=== PATIENT | female | born 1965 | race Caucasian/White ===

== ENCOUNTER 2018-09-07 19:57 | Emergency (ER) | payer OTHER ==
[~2018-09-07] VITALS: Ht 157.5 cm; Wt 76.2 kg
[2018-09-07 20:00] VITALS: BP 156/86
--- NOTE | 2018-09-07 20:00 | NUR ---
ASSUMED CARE OF PT AT THIS TIME. C/O SUB-STERNAL, NON-RADIATING CP X 2 DAYS. NO SOB. AAOX4 WITH EVEN AND STEADY GAIT; PATIENT STATES PAIN OF 6/10; VSS; PATIENT POSITIONED FOR COMFORT; HOB ELEVATED; BEDRAILS UP X2; BED DOWN. ER MD MADE AWARE OF PT STATUS. WILL CONTINUE TO MONITOR.
--- NOTE | 2018-09-07 20:00 | NUR ---
TO BED # 12 AMBULATORY
[2018-09-07] MEDS ORDERED: ASPIRIN 325 MG TAB PO ONE (20:10)
--- NOTE | 2018-09-07 20:24 | NUR ---
DR. QUEZADA BEDSIDE EVALUATING PT
[2018-09-07 21:29] LABS: BASOPHILS % (AUTO) 0.5 % (0.0-2.0); EOSINOPHILS # (AUTO) 0.1 K/uL (0-0.4); HEMATOCRIT 40.5 % (36-48); HEMOGLOBIN 13.5 g/dL (12.0-16.0); LYMPHOCYTES # (AUTO) 2.9 K/uL (2.5-16.5); LYMPHOCYTES % (AUTO) 42.7 % (20.5-51.1); MEAN CORPUSCULAR HEMOGLOBIN 30 pg (27-31); MEAN CORPUSCULAR HGB CONC 33 g/dL (33-37); MEAN CORPUSCULAR VOLUME 89.7 fL (80-94); MONOCYTES # (AUTO) 0.5 K/uL (0.8-1.0); MONOCYTES % (AUTO) 7.6 % (1.7-9.3); NEUTROPHILS # (AUTO) 3.2 K/uL (1.8-7.7); NEUTROPHILS % (AUTO) 47.2 % (42.2-75.2); PLATELET COUNT (AUTO) 232 K/uL (140-450); RED BLOOD CELL COUNT(AUTO) 4.52 MIL/uL (4.20-5.40); RED CELL DISTRIBUTION WIDTH 13.4 % (11.6-13.7); WHITE BLOOD COUNT (AUTO) 6.9 K/uL (4.8-10.8)
[2018-09-07 21:37] LABS: ANION GAP 10.7 (8-16); CARBON DIOXIDE 29.1 mmol/L (21-32); CREATININE 0.6 mg/dL (0.6-1.3); POTASSIUM 3.8 mmol/L (3.5-5.1)
[2018-09-07 21:44] LABS: ALBUMIN 3.7 g/dL (3.4-5.0); TOTAL BILIRUBIN 0.4 mg/dL (0.0-1.0)
[2018-09-07 22:05] VITALS: BP 121/67
== END 2018-09-07 22:05 | disposition home or self-care (01) ==
LOC: MED 19:57
DX: R07.89 Other chest pain (principal); M79.604 Pain in right leg; M79.605 Pain in left leg
CPT/HCPCS: 36415; 71045; 80053; 83880; 84484; 85025; 99284; Q0092; 93005